=== PATIENT | male | born 1980 | race Caucasian/White ===

== ENCOUNTER 2017-02-13 17:32 | Emergency (ER) | payer MEDICAID ==
[~2017-02-13] VITALS: Ht 190.5 cm; Wt 148.2 kg
[2017-02-13] MEDS ORDERED: DIPH,PERTUSS(ACELL),TET VAC/PF 0.5 ML IM-VACC ONE ×2 (18:00→19:00)
[2017-02-13] MEDS ORDERED: VANCOMYCIN 2,300 MG in SODIUM CHLORIDE 0.9% 500 ML IV ONE (18:00)
[2017-02-13] MEDS ORDERED: VANCOMYCIN PER PHARMACY MC PRN (18:00)
[2017-02-13 18:14] LABS: HEMATOCRIT 45.5 % (39.2-51.8); HEMOGLOBIN 15.5 g/dL (13.7-18.0); WHITE BLOOD COUNT 11.2 x10^3/uL (3.4-10)
[2017-02-13 18:23] LABS: BLOOD UREA NITROGEN 10 mg/dL (7-18)
[2017-02-13 20:03] VITALS: BP 132/78
== END 2017-02-13 20:34 | disposition home or self-care (01) ==
LOC: ED 18:26
DX: L03.012 Cellulitis of left finger (principal)
CPT/HCPCS: 29130; 36415; 73140; 80048; 85025; 90471; 90715; 96365; 96366; 99285; J3370; J7040

== ENCOUNTER 2017-11-16 16:33 | Emergency (ER) | payer MEDICAID, OTHER ==
[~2017-11-16] VITALS: Ht 190.5 cm; Wt 150.3 kg
[2017-11-16 17:29] LABS: BASOPHILS # (AUTO) 0.02 x10^3/uL (0-0.1); BASOPHILS % (AUTO) 0 % (0-1); EOSINOPHILS # (AUTO) 0.18 x10^3/uL (0-0.4); EOSINOPHILS % (AUTO) 2 % (1-7); LYMPHOCYTES # (AUTO) 2.79 x10^3/uL (1-3.4); LYMPHOCYTES % (AUTO) 32 % (22-44); MD NO; MEAN CORPUSCULAR HEMOGLOBIN 29.6 pg (27.5-34.5); MEAN CORPUSCULAR HGB CONC 34.1 g/dL (33.2-36.2); MEAN CORPUSCULAR VOLUME 86.9 fL (81-97); MEAN PLATELET VOLUME 8.4 fL (7.4-10.4); MONOCYTES # (AUTO) 0.64 x10^3/uL (0.2-0.8); MONOCYTES % (AUTO) 7 % (2-9); NEUTROPHILS # (AUTO) 5.01 x10^3/uL (1.8-6.8); NEUTROPHILS % (AUTO) 58 % (42-75); PLATELET COUNT 329 x10^3/uL (130-400); RED BLOOD COUNT 5.63 x10^6/uL (4.38-5.82); RED CELL DISTRIBUTION WIDTH 13.3 % (9.4-14.8)
[2017-11-16 17:37] LABS: ALANINE AMINOTRANSFERASE 61 U/L (12-78); ALBUMIN 4.3 g/dL (3.4-5.0); ANION GAP 6 mmol/L (5-15); CALCIUM 8.9 mg/dL (8.5-10.1); CHLORIDE 106 mmol/L (98-107); CREATININE 0.98 mg/dL (0.7-1.3)
[2017-11-16] MEDS ORDERED: FLUO20CA19 PO (17:39)
[2017-11-16] MEDS ORDERED: propanolol PO (17:39)
[2017-11-16] MEDS ORDERED: trazodone PO (17:39)
[2017-11-16 17:41] LABS: ALKALINE PHOSPHATASE 64 U/L (45-117); BILIRUBIN,TOTAL 1.1 mg/dL (0.2-1.0); TOTAL PROTEIN 7.5 g/dL (6.4-8.2); TROPONIN I < 0.015 ng/mL (0.000-0.045)
[2017-11-16 18:30] VITALS: BP 119/71
== END 2017-11-16 18:32 | disposition home or self-care (01) ==
LOC: ED 18:07
DX: R42 Dizziness and giddiness (principal)
CPT/HCPCS: 36415; 71045; 80053; 84484; 85025; 93005; 99285

== ENCOUNTER 2018-04-19 15:52 | Emergency (ER) | payer MEDICAID, OTHER ==
[~2018-04-19] VITALS: Ht 190.5 cm; Wt 160.5 kg
[~2018-04-19 15:52] MED LIST: FLUO20CA19 PO; propanolol PO; trazodone PO
[2018-04-19 15:58] VITALS: BP 137/60
== END 2018-04-19 17:02 | disposition home or self-care (01) ==
LOC: ED 16:45
DX: J02.9 Acute pharyngitis, unspecified (principal); Z88.1 Allergy status to other antibiotic agents
CPT/HCPCS: 99283

== ENCOUNTER 2019-06-07 11:34 | Emergency (ER) | payer SELFPAY ==
[~2019-06-07] VITALS: Ht 190.5 cm; Wt 155.0 kg
[~2019-06-07 11:34] MED LIST changes: +BUSP10TA PO; +BUSP15TA PO; +TRAZ-137 PO
[2019-06-07 11:41] VITALS: BP 146/83
--- NOTE | 2019-06-07 12:12 | NUR ---
TASK RN: Patient/Caregiver given discharge instructions and they have confirmed that they understand the instructions. Patient ambulatory with steady gait. PT LEFT WITH ALL PERSONAL BELONGINGS.
--- NOTE | 2019-06-07 12:16 | NUR ---
Note jillian in ED - 06/07/19 at 1217 by FE TASK RN: PT MAD HE DIDN'T GET A PRESCRIPTION FOR FLUOXETINE. PT EDUCATED REGARDING PLAN OF CARE AND THIS RN REVIEWED ALL RESOURCES FOR PT. PT STATED "I'M NOT GOING THERE." PT REFUSED ALL D/C PAPERWORK AND RESOURCE LISTS. PT GRABBED ALL HIS PERSONAL BELONGINGS AND WALKED OUT OF THE ER.
== END 2019-06-07 12:20 | disposition home or self-care (01) ==
LOC: ED 12:00
DX: H60.502 Unspecified acute noninfective otitis externa, left ear (principal); H69.82 Other specified disorders of Eustachian tube, left ear
CPT/HCPCS: 99283

== ENCOUNTER 2019-06-07 23:59 | Emergency (ER) | payer SELFPAY ==
[~2019-06-07] VITALS: Ht 190.5 cm; Wt 158.5 kg
[2019-06-08 00:02] VITALS: BP 149/90
[2019-06-08] MEDS ORDERED: DEXAMETHASONE 4 MG TABLET PO ONE (00:30)
[2019-06-08] MEDS ORDERED: DEXAMETHASONE 4 MG TABLET ONE (01:06)
== END 2019-06-08 01:12 | disposition home or self-care (01) ==
LOC: ED 06-08 00:41
DX: J02.9 Acute pharyngitis, unspecified (principal); R06.00 Dyspnea, unspecified; Z87.891 Personal history of nicotine dependence
CPT/HCPCS: 87081; 87880; 93005; 99284